=== PATIENT | male | born 2005 | race Two or more races ===

== ENCOUNTER 2024-10-19 20:21 | Emergency (ER) | payer OTHER ==
[~2024-10-19] VITALS: Ht 177.8 cm; Wt 63.5 kg
[2024-10-19] MEDS ORDERED: BACITRACIN ZINC OINT PACKET 1 EA PACKET TP ONE (20:53)
[2024-10-19] MEDS ORDERED: ACETAMINOPHEN ES 500 MG TABLET ONE (20:54)
[2024-10-19] MEDS: LIDOCAINE HCL/PF 1% 30 ML VIAL TP ONE (20:58)
[2024-10-19] MEDS: BACITRACIN ZINC OINT PACKET 1 EA PACKET TP ONE (20:58)
[2024-10-19] MEDS: ACETAMINOPHEN ES 500 MG TABLET PO ONE (20:58)
[2024-10-19 21:16] VITALS: BP 121/73; TEMP 98.4; O2SAT 99
== END 2024-10-19 21:16 | disposition home or self-care (01) ==
LOC: ER 20:34
DX: S61.211A Laceration without foreign body of left index finger without damage to nail, initial encounter (principal); W26.0XXA Contact with knife, initial encounter; Y93.G3 Activity, cooking and baking; Y92.090 Kitchen in other non-institutional residence as the place of occurrence of the external cause; Y99.8 Other external cause status
CPT/HCPCS: 12001; 99283; J3490